=== PATIENT | female | born 1955 | race Caucasian/White ===

== ENCOUNTER → 2018-11-02 | Outpatient (CLI) | payer MEDICARE ==
--- NOTE | 2018-11-03 17:11 | BD ---
EXAMINATION TYPE: Axial Bone Density DATE OF EXAM: 11/02/2018 COMPARISON: NONE CLINICAL HISTORY: Height: 5 FT3 1/2 IN Weight: 177 FRAX RISK QUESTIONS: RISK FACTORS HISTORY OF: Active: YES Postmenopausal woman: AGE 46 MEDICATIONS: Additional Medications: NONE Additional History: EXAM MEASUREMENTS: Bone mineral densitometry was performed using the [employer] System. Bone mineral density as measured about the Lumbar spine is: ----- L1-L4(G/cm2): 1.300 T Score Values are as follows: ----- L2: 0.9 ----- L3: 0.7 ----- L4: 1.8 ----- L1-L4: 1.0 BASELINE Bone mineral density about the R hip (g/cm2): 1.026 Bone mineral density about the L hip (g/cm2): 0.997 T Score values are as follows: -----R Neck: -0.1 -----L Neck: -0.3 -----R Total: 0.5 -----L Total: 0.2 BASELINE IMPRESSION: Normal (Values between +1 and -1 indicate normal bone mass). Consider repeating this study in 5 year s or sooner if there is some new clinical indication. NOTE: T-SCORE=SD OF THE YOUNG ADULT MEAN.
--- NOTE | 2018-11-14 09:31 | MM ---
Reason for exam: screening (asymptomatic). Last mammogram was performed 7 years and 1 month ago. History: Patient is postmenopausal and history of other cancer. Family history of breast cancer in grandmother at age 50. Physical Findings: A clinical breast exam by your physician is recommended on an annual basis and results should be correlated with mammographic findings. MG Screening Mammo w CAD Bilateral CC and MLO view(s) were taken. Prior study comparison: September 19, 2011, mammogram. The breast tissue is extremely dense which could obscure a lesion on mammography. No suspicious abnormality. No significant changes when compared with prior studies. ASSESSMENT: Benign, BI-RAD 2 RECOMMENDATION: Routine screening mammogram of both breasts in 1 year.
== END | disposition home or self-care (01) ==
LOC: RADMAMWWP 08:23
PROVIDERS: ATTEND Family Medicine
DX: Z12.31 Encounter for screening mammogram for malignant neoplasm of breast (principal); Z78.0 Asymptomatic menopausal state
CPT/HCPCS: 77067; 77080

== ENCOUNTER → 2020-06-19 | Outpatient (CLI) | payer MEDICARE ==
[2020-06-19 12:10] LABS: HCT 39.5 % (34.0-46.0); HGB 13.3 gm/dL (11.4-16.0); MCH 32.2 pg (25.0-35.0); MCHC 33.8 g/dL (31.0-37.0); MCV 95.2 fL (80.0-100.0); Mean Platelet Volume 7.7; Platelet Count 247 k/uL (150-450); RBC 4.14 m/uL (3.80-5.40); RDW 12.9 % (11.5-15.5); WBC 5.8 k/uL (3.8-10.6)
[2020-06-19 12:25] LABS: Albumin 4.3 g/dL (3.5-5.0); Calcium 9.2 mg/dL (8.4-10.2); Potassium 4.4 mmol/L (3.5-5.1); Total Bilirubin 0.4 mg/dL (0.2-1.3); Total Protein 7.2 g/dL (6.3-8.2)
[2020-06-19 12:33] LABS: INR 0.9 (<1.2); Partial Thromboplastin Time 22.7 sec (22.0-30.0); Prothrombin Time 9.8 sec (9.0-12.0)
[2020-06-19 14:09] LABS: Appearance,Urine Clear (Clear); Bilirubin,Urine Negative (Negative); Blood,Urine Negative (Negative); Color,Urine Yellow; Glucose,Urine (UA) Negative (Negative); Ketones,Urine Negative (Negative); Leukocyte Esterase,Urine Negative (Negative); Nitrite,Urine Negative (Negative); PH, Urine 6.5 (5.0-8.0); Protein,Urine Negative (Negative); Specific Gravity,Urine 1.025 (1.001-1.035); Urobilinogen,Urine <2.0 mg/dL (<2.0)
== END | disposition home or self-care (01) ==
LOC: LABPAT 10:57
PROVIDERS: ATTEND Orthopaedic Surgery Sports Medicine
DX: Z01.818 Encounter for other preprocedural examination (principal); Z01.812 Encounter for preprocedural laboratory examination
CPT/HCPCS: 80053; 81003; 85027; 85610; 85730; 87070; 93005

== ENCOUNTER 2020-07-04 05:46 | Observation (INO) | payer MEDICARE ==
[2020-06-28 11:56] VITALS: BMI 31.8
[~2020-07-04 05:46] MED LIST: ACETAMINOPHEN TAB 500 MG TAB PO PRN; GABAPENTIN 300 MG CAP PO PRN; LIDOCAINE 1% (10MG/ML) FOR IV START INTRADERMA PRN; MELOXICAM 7.5 MG TAB PO PRN; ONDANSETRON 4 MG/2 ML VIAL IVP ONE; ONDANSETRON 4 MG/2 ML VIAL IVP PRN; ROPIVACAINE 246.25 MG, EPINEPHrine 0.5 MG, KETOROLAC 30 MG, cloNIDine HCL/PF 80 MCG, WA... MISCELLANE PRN; TRANEXAMIC ACID 1,000 MG in SODIUM CHLORIDE 0.9% 100 ML IVPB PRN
[2020-07-04] MEDS: LACTATED RINGERS 1,000 ML IV SCH ×3 (06:15→21:23)
[2020-07-04] MEDS ORDERED: DEXAMETHASONE SOD PHOSPHATE 4 MG/ML 1 ML VIAL IV ONE (06:15)
[2020-07-04] MEDS ORDERED: MIDAZOLAM 2 MG/2 ML VIAL IV ONE (06:37)
[2020-07-04] MEDS ORDERED: PROPOFOL 10 MG/ML 20 ML VIAL IV ONE (06:55)
[2020-07-04] MEDS ORDERED: fentaNYL (PF) 50 MCG/ML 2 ML AMP ONE (06:55)
[2020-07-04] MEDS ORDERED: SODIUM CHLORIDE 0.9% 100 ML BAG ONE (06:55)
[2020-07-04] MEDS ORDERED: PHENYLEPHRINE 10 MG/ML VIAL ONE (06:55)
[2020-07-04] MEDS ORDERED: MIDAZOLAM 2 MG/2 ML VIAL ONE (06:55)
[2020-07-04] MEDS ORDERED: TRANEXAMIC ACID 1,000 MG/10 ML VIAL ONE (06:55)
--- NOTE | 2020-07-04 06:59 | P.ANPRN ---
Procedure Note - Anesthesia - Nerve Block Performed Right Adductor Canal Infusion Time Out Performed: Yes ([id number]) Date of Procedure: 07/04/20 Procedure Start Time: 06:37 Procedure Stop Time: 06:52 Location of Patient: PreOp Indication: Acute Post-Operative Pain, Analgesia, Requested by Surgeon Specifically requested for management of pain by : Radu Morris Sedation Type: Sedate with meaningful contact maintained Preparation: Sterile Prep, Sterile Dressing Position: Supine Catheter: Indwelling Needle Types: Pajunk Needle Gauge: 20 Ultrasound used to visualize needle placement: Yes Ultrasound used to observe medication spread: Yes Injectate: 0.5% Ropivacaine (see comment for volume) (20 mL) Blood Aspirated: No Pain Paresthesia on Injection Noted: No Resistance on Injection: Normal Image Stored and Saved: Yes Events: Uneventful and Well Tolerated
[2020-07-04] MEDS ORDERED: ceFAZolin 3,000 MG in SODIUM CHLORIDE 0.9% IRRIGATIO 3,000 ML IRRIGATION ONE (07:34)
[2020-07-04] MEDS ORDERED: LACTATED RINGERS 1,000 ML IV ONE (08:15)
[2020-07-04] MEDS ORDERED: ROPIVACAINE 0.2%-NS ON-Q PUMP 1,090 MG, EMPTY PAIN BALL 1 EACH MISCELLANE PRN (09:07)
[2020-07-04] MEDS: HYDROmorphone 0.5 MG/0.5 ML SYRINGE IVP PRN ×5 (09:23→23:14)
[2020-07-04] MEDS ORDERED: NALOXONE 0.4 MG/ML 1 ML VIAL IV PRN (09:24)
[2020-07-04] MEDS ORDERED: TEMAZEPAM 15 MG CAP PO PRN (09:24)
[2020-07-04] MEDS ORDERED: HYDROmorphone 0.2 MG/1 ML SYRINGE IVP PRN (09:24)
[2020-07-04] MEDS ORDERED: NA PHOS,M-B/NA PHOS,DI-BA 133 ML ENEMA RECTAL PRN (09:24)
[2020-07-04] MEDS ORDERED: HYDROmorphone 0.5 MG/0.5 ML SYRINGE IVP PRN (09:24)
[2020-07-04] MEDS ORDERED: diazePAM 5 MG TAB PO PRN (09:24)
[2020-07-04] MEDS ORDERED: Acetaminophen-Codeine 300-30mg TAB PO PRN ×2 (09:24)
[2020-07-04] MEDS ORDERED: ACETAMINOPHEN TAB 325 MG TAB PO PRN (09:24)
[2020-07-04] MEDS ORDERED: MAGNESIUM HYDROXIDE 2,400 MG/10 ML CUP PO PRN (09:24)
[2020-07-04] MEDS ORDERED: HYDROcodone/APAP 5-325MG 1 EACH TAB PO PRN (09:24)
[2020-07-04] MEDS ORDERED: bisacodyL 10 MG SUPP RECTAL PRN (09:24)
[2020-07-04] MEDS ORDERED: ONDANSETRON 4 MG/2 ML VIAL IVP PRN (09:24)
--- NOTE | 2020-07-04 10:01 | XR ---
Right knee HISTORY: Total knee arthroplasty 2 views the right knee Patient is status post right knee arthroplasty. There is anatomic alignment. Lucency is present in th e soft tissues. IMPRESSION: Orthopedic follow-up.
--- NOTE | 2020-07-04 10:32 | OP ---
OPERATIVE REPORT DATE OF PROCEDURE: 07/04/2020 SURGEON: Radu Morris MD. MOWING MACHINE OPERATOR: Mina OMON. PREOPERATIVE DIAGNOSIS: Right knee osteoarthrosis. POSTOP DIAGNOSIS: Right knee osteoarthrosis. OPERATION: Right total knee arthroplasty. ANESTHESIA: Spinal sedation. ESTIMATED BLOOD LOSS: 100 mL. TOURNIQUET TIME: 46 minutes at 250 mmHg. COMPLICATIONS: None apparent. DRAINS: None. DISPOSITION: Postanesthesia care unit. INDICATIONS: Carla is a 65-year-old female with longstanding history of right knee pain. Her history and physical examination are consistent with advanced right knee osteoarthrosis. She has been through significant nonoperative management up to this point. Further treatment options were discussed and she has decided to go forward with a right total knee arthroplasty. The risks of procedure were discussed with her in detail. These risks include, but are not limited to risk of infection, nerve damage, bleeding, pain, and a small risk of deep vein thrombosis which could lead to fatal pulmonary embolism. There is also risk of loosening of the implant which could require revision operation. The patient understands these risks. All of her questions were answered to her satisfaction. Appropriate informed consent was obtained. DESCRIPTION OF PROCEDURE: Patient was identified in preoperative holding area. Surgical site was marked by both the patient and myself. She was given 2 grams of Ancef IV for prophylactic purposes. She was then transferred to the operative suite where she was placed supine on the operating room table. Spinal anesthetic was then administered and dosed per the anesthesia department without apparent complication. Examination under anesthesia was then performed. The patient was 2-3 degrees shy of full extension. She had 100 degrees of flexion and the medial collateral ligament, lateral collateral ligament and posterior cruciate ligaments were stable. Tourniquet was then placed high on the right upper thigh well-padded in preparation for surgery. The patient's right lower extremity was then prepped and draped in the usual sterile fashion. Standard surgical pause was undertaken to ensure that we were operating the correct site and that appropriate preoperative antibiotics had been given. All staff in the room were in agreement and we proceeded. The outlines of the patella were marked surgical pen. A planned 12 cm vertical incision centered over the patella was marked with surgical pen. The leg was then exsanguinated with an Esmarch dressing. The knee was then flexed and tourniquet inflated to 250 mmHg. The total tourniquet time for the procedure was 46 minutes. Incision was then made with a 10-blade scalpel. Dissection was carried down sharply with overlying fascia. Great care was taken to minimize the skin flaps. The knee was then exposed using a standard medial parapatellar approach. A small cuff of quadriceps tendon was then left for suturing. She was in a slight bit of valgus preoperatively. A very minimal medial release was then made. This was done just enough to allow for placement of the medial retractor to protect the medial collateral ligament. The medial meniscus was then excised as well. Lateral meniscus was also released anteriorly. The leg was then externally rotated. The patella was everted. The knee was flexed. Retractors were then placed to protect the collateral ligaments. I then proceeded to remove the infrapatellar fat pad. This was excised sharply tangentially with fibers of the patellar tendon. I then proceeded to remove peripheral osteophytes. This was done with a rongeur. I then proceeded with the distal femoral resection. She did have near full extension. A planned 9 mm resection was then done. The femoral canal was then entered in the midline of the femur, approximately 10 mm anterior to the origin of the posterior cruciate ligament. The randa was then advanced down the center of the femur and placed intramedullary. Based on the preoperative radiographs, the angle between the anatomic and mechanical axis of the femur was approximately 4 to 5 degrees. The valgus angle of the distal femoral cutting guide was then set at 4 degrees for the right knee. Distal femoral cutting guide was then advanced over the intramedullary randa. This was seated firmly against the femur. Then as mentioned planned to take 9 mm off the distal femur. The cutting block was then secured onto the femur with pins. The jig was then removed and the distal femoral cut was made through the slot of the block. The pins were then removed. The distal femoral cutting block was removed. The accuracy of the distal femoral cuts was checked with 2 flat bars. I then proceeded with femoral sizing. Posterior referencing sizing guide was held firmly against the resected distal surface of the femur. The posterior condyles were resting on the posterior plane of the guide. The sizing stylus was then placed onto the anterior femur. The size was measured as a size 6. I then assessed for femoral rotation. The plan was for 3 degrees of external rotation. Three degrees of external rotation was placed onto the jig. These holes were then marked. I then confirmed the rotation by 3 separate methods. This was done using epicondylar axis as well as Whitesides line and posterior referencing. It was deemed that the external rotation was proper. I then went forward and placed the femoral cutting block. This was placed over the previously placed pin holes. The Jonathan wing was then placed on to the anterior slots to ensure that we would not notch the anterior femur with the anterior femoral cut. I then proceeded with the anterior femoral cut. This was flush with the anterior cortex of the femur. The posterior cuts were then made followed by the anterior chamfer cut, then the posterior chamfer cut. The cutting block was then removed. Throughout the resection, the collateral ligaments were protected with retractors. I then placed a trial size 6 femur. It was slightly wide mediolateral but the narrow fit nicely and it fit flush with the distal end of the femur. The drill hole was then made. I then proceeded with the tibial cut. I planned for cruciate-retaining knee. The guide was placed and set for varus, valgus and for slope. The height was set for approximate 2 mm resection from the lateral tibial plateau which was the lower side. I was happy with the alignment and the amount of resection. The cutting block was then pinned to the proximal tibia. The alignment randa was removed. The proximal tibia was resected with a reciprocating saw. Again this was done with retractors protecting the collateral ligaments as well as the posterior cruciate ligament. I then proceeded to evaluate the flexion and extension gaps. A 10 mm block was then placed. The flexion and extension gaps were equal. I then proceeded with resection of the posterior osteophytes. She had very minimal posterior osteophytes. This was done using a curved osteotome. This resected the posterior osteophytes and posterior capsule stripping was done off the posterior aspect of the femur. The osteophytes were then removed. I then proceeded with resection of the patella. The thickness of the patella was measured using the caliper. The thickness was 22 mm. The thickness of the anticipated patellar dome was taken into account. Resection was then performed and confirmed to be equal in 4 quadrants using a caliper. Approximately 14 mm of bone remained after the resection. A 29 x 8 standard patellar trial was then placed. The holes were drilled. The trial was then placed. I then proceeded with sizing tibial plate. A size D tibial plate fit very nicely. I then placed the trial femur, the tibial tray and patellar button. A 10 mm trial insert tibial insert was also placed. The components fit very nicely. She had full extension and flexion. The extension and flexion gaps were equal and stable both varus and valgus stress. The patella tracked appropriately. The tibial tray rotation was then marked with a Bovie. This was externally rotated properly. I then proceeded with tibial preparation. First, we drilled the femoral holes and removed femoral component. The tibial tray was then set for proper external rotation as well as mediolateral placement onto the tibia. It was then pinned into place. I then proceeded with punching the keel. I then decided to proceed with cementing of all of our components. The knee was thoroughly irrigated with sterile saline solution via pulse lavage. The lateral geniculate artery was identified and cauterized. All blood was removed from the bone of the tibia, femur and patella with pulse lavage. I then proceeded with cementing. Two packs of antibiotic bone cement were prepared on the back table by the surgical manager. I then proceeded with cementing the tibia first. The cement was impacted in the keel as well as deeply seated in the bone. A second coat of cement was then placed. The tibia was then impacted into place. Excess cement was removed with Farmington's and Jokers. I then proceeded with cementing the femoral component. The femoral component was also cemented using standard technique. Excess cement was removed. A 10 mm trial insert was then placed into the knee. It was brought in full extension with a constant axial load placed until the cement had hardened. The patellar component was then cemented. This held firmly with a compressive device until the cement had dried. When the cement had dried, the knee was taken out of extension. All excess cement was removed from around the prosthesis. I then trialed the knee with a 10 mm insert. The flexion and extension gaps were appropriate. The knee was stable. It came into full extension. I decided to go forward with a 10 mm cross-linked, cruciate-retaining tibial insert. Polyethylene was then placed onto the tibial tray and locked into place. The knee was then reduced. The knee was again further irrigated with sterile saline solution with antibiotic added. The tourniquet was then deflated. The total tourniquet time for the procedure was 46 minutes at 250 mmHg. Final components were Raúl Persona size 6 narrow cruciate-retaining femoral component, size D tibial tray, a 10 mm medial congruent cruciate-retaining polyethylene insert, and a 29 x 8 standard mm patella. I then proceeded with closure. Again, the knee was thoroughly irrigated. The quadriceps tendon and medial retinaculum were reapproximated with #2 Ethibond suture. The extensor mechanism was then closed with a running #2 Quill suture. Subcutaneous tissues were closed with 2-0 Vicryl interrupted suture. The skin was closed with a running 3-0 Quill suture. Dermabond was applied to the incision. Sterile compressive dressing was then applied. All sponge and needle counts were deemed correct prior to closure. The patient tolerated the procedure without apparent complication. She was transferred to the recovery room in stable condition. MMODL / IJN: [id number] /
[2020-07-04] MEDS: HYDROcodone/APAP 10-325MG 1 EACH TAB PO PRN ×3 (12:27→23:14)
[2020-07-04] MEDS: ASPIRIN 81 MG PO SCH (21:23)
[2020-07-04] MEDS: SENNOSIDES-DOCUSATE SODIUM 1 EACH TAB PO SCH (21:23)
--- NOTE | 2020-07-04 22:54 | P.CONS ---
History of Present Illness - Reason for Consult Consult date: 07/04/20 Medical management Requesting physician: Radu Morris - Chief Complaint Right knee surgery - History of Present Illness Consultation: This is a 65-year-old patient, of Dr. Cervantes. Has undergone right total knee arthroplasty. Patient's symptoms have been progressive. Had tried conservative methods including medications. Not helping. Pain was worse with activity and better with rest. Pain localized to the knee. Postprocedure pain is controlled. No nausea vomiting. Did tolerate a light supper. Patient has arthritis in other joints. Insomnia. Urinary incontinence. Review of systems: GEN.: None EYES: None HEENT: None NECK: None RESPIRATORY: None CARDIOVASCULAR: None GASTROINTESTINAL: None GENITOURINARY: Urinary incontinence MUSCULOSKELETAL: Arthritic. Other joints including lower back LYMPHATICS: None HEMATOLOGICAL: None PSYCHIATRY: None NEUROLOGICAL: Insomnia for which she takes Benadryl Past medical history to include: Arthritis, insomnia, urinary incontinence Social history: Does not smoke or drink alcohol. . Physical examination: VITAL SIGNS: 98, 91, 18, 129 with 79, 98% room air GENERAL: BMI 32.5, retraining in bed, comfortable. EYES: Pupils equal. Conjunctiva normal. HEENT: External appearance of nose and ears normal, oral cavity grossly normal. NECK: JVD not raised; masses not palpable. HEART: First and second heart sounds are normal; no edema. LUNGS: Respiratory rate normal; clear to auscultation. ABDOMEN: Soft, nontender, liver spleen not palpable, no masses palpable. PSYCH: Alert and oriented x3; mood and affect normal MUSCULAR skeletal: Evidence of OA especially in the hands, dressing over the right knee. NEUROLOGICAL: Cranial nerves grossly intact; no facial asymmetry, power and sensation grossly intact. LYMPHATICS: No lymph nodes palpable in the axilla and neck INVESTIGATIONS, reviewed in the clinical context: Blood work from 06/19/2020. White count 5.8 hemoglobin 13.3 platelets 247 potassium 4.4 creatinine 0.80 UA negative Assessment: -Right total knee arthroplasty -Primary osteoarthritis -Obesity BMI 32.5 -Insomnia, idiopathic -Chronic urinary stress incontinence Plan: Patient placed on aspirin twice daily for DVT prophylaxis by Dr. Morris. IV fluids. Patient been advised not to take Benadryl for sleeping instead/the patient O2 melatonin. Patient to follow-up with family doctor or discharge. Thank you Dr. Morris Past Medical History Past Medical History: Cancer, Osteoarthritis (OA) Additional Past Medical History / Comment(s): skin ca History of Any Multi-Drug Resistant Organisms: None Reported Past Surgical History: Section, Orthopedic Surgery Additional Past Surgical History / Comment(s): rt knee arthroscopic sx, left middle finger sx Past Anesthesia/Blood Transfusion Reactions: Previous Problems w/ Anesthesia Additional Past Anesthesia/Blood Transfusion Reaction / Comm: slow to wake up Past Psychological History: No Psychological Hx Reported Smoking Status: Never smoker Past Alcohol Use History: Occasional Past Drug Use History: None Reported - Past Family History Mother Family Medical History: Deep Vein Thrombosis (DVT) Father Family Medical History: Cancer Additional Family Medical History / Comment(s): leukemia Medications and Allergies Home Medications Medication Instructions Recorded Confirmed Type No Known Home Medications 06/28/20 07/04/20 History Allergies Allergy/AdvReac Type Severity Reaction Status Date / Time ibuprofen AdvReac Diarrhea Verified 07/04/20 05:59 Physical Exam Vitals: Vital Signs Temp Pulse Pulse Pulse Resp BP BP 07/04/20 19:07 98.0 F 91 18 129/79 07/04/20 11:52 79 117/70 07/04/20 11:37 74 124/84 07/04/20 11:22 71 122/77 07/04/20 11:07 75 137/89 07/04/20 10:52 76 122/79 07/04/20 10:37 91 17 121/73 07/04/20 10:15 71 18 07/04/20 10:01 70 18 135/78 07/04/20 09:46 90 18 128/68 07/04/20 09:31 88 18 127/67 07/04/20 09:16 99 18 123/64 07/04/20 09:01 93 18 123/70 07/04/20 08:52 97.1 F L 77 16 119/63 07/04/20 06:55 77 16 07/04/20 06:07 98.6 F 82 16 131/77 BP Pulse Ox 07/04/20 19:07 98 07/04/20 11:52 96 07/04/20 11:37 96 07/04/20 11:22 97 07/04/20 11:07 98 07/04/20 10:52 97 07/04/20 10:37 91 L 07/04/20 10:15 97 07/04/20 10:01 92 L 07/04/20 09:46 07/04/20 09:31 96 07/04/20 09:16 98 07/04/20 09:01 97 07/04/20 08:52 97 07/04/20 06:55 118/65 99 07/04/20 06:07 99 Intake and Output 07/04/20 07/04/20 07/04/20 06:59 14:59 22:59 Intake Total 100 1651 Output Total 100 Balance 100 1551 Intake: IV 100 1651 Output: Estimated Blood Loss 100 Other: Voiding Method Toilet # Voids 2 Weight 83.1 kg 83.1 kg
[2020-07-05] MEDS: HYDROmorphone 0.5 MG/0.5 ML SYRINGE IVP PRN (02:11)
[2020-07-05] MEDS: HYDROcodone/APAP 10-325MG 1 EACH TAB PO PRN ×4 (04:19→20:47)
[2020-07-05] MEDS: LACTATED RINGERS 1,000 ML IV SCH ×3 (05:45→22:27)
[2020-07-05 06:26] LABS: Basophils % (A) 0 %; Eosinophils # (A) 0.1 k/uL (0-0.7); Eosinophils % (A) 1 %; HCT 32.7 % (34.0-46.0); HGB 11.1 gm/dL (11.4-16.0); Lymphocytes # (A) 1.7 k/uL (1.0-4.8); Lymphocytes % (A) 22 %; MCH 32.1 pg (25.0-35.0); MCHC 34.1 g/dL (31.0-37.0); MCV 94.2 fL (80.0-100.0); Mean Platelet Volume 7.8; Monocytes # (A) 0.5 k/uL (0-1.0); Monocytes % (A) 6 %; Neutrophils # (A) 5.4 k/uL (1.3-7.7); Neutrophils % (A) 69 %; Platelet Count 198 k/uL (150-450); RBC 3.47 m/uL (3.80-5.40); RDW 12.7 % (11.5-15.5); WBC 7.8 k/uL (3.8-10.6)
[2020-07-05] MEDS ORDERED: HYDROcodone/APAP 10-325MG 1 EACH TAB PO PRN (09:10)
[2020-07-05] MEDS: ASPIRIN 81 MG PO SCH ×2 (09:33→21:26)
--- NOTE | 2020-07-05 09:39 | P.PN ---
Subjective Progress Note Date: 07/05/20 Principal diagnosis: Right TKA Patient is seen at bedside this morning. She is postop day #1 from right total knee arthroplasty. She has pain at the surgical site as expected but denies any new complaints. She denies numbness, tingling or calf pain. Review of systems is negative for fever, chills, chest pain, shortness of breath or other Objective - Vital Signs Vital signs: Vital Signs Temp 99 F 07/05/20 06:27 Pulse 90 07/05/20 06:27 Resp 16 07/05/20 06:27 BP 112/64 07/05/20 06:27 Pulse Ox 94 L 07/05/20 06:27 Intake & Output 07/04/20 07/05/20 07/05/20 18:59 06:59 18:59 Intake Total 1651 250 Output Total 100 Balance 1551 250 Weight 83.1 kg Intake: IV 1651 Intake, IV Titration 50 Amount ceFAZolin 2 gm In Sodium 50 Chloride 0.9% 50 ml @ 100 mls/hr IVPB Q8H MARQUITA Rx#: [id number] Oral 200 Output: Estimated Blood Loss 100 Other: Voiding Method Toilet Toilet # Voids 2 4 - Exam Inspection reveals a benign surgical wound. There is no active bleeding or drainage. Neurovascular status is intact throughout the lower extremity with motor and sensation fully intact. Calf is soft and nontender. 2+ dorsalis pedis pulse and less than 2 second cap refill is present. - Constitutional General appearance: Present: no acute distress - Labs CBC & Chem 7: 07/05/20 05:26 Labs: Abnormal Lab Results - Last 24 Hours (Table) 07/05/20 Range/Units 05:26 RBC 3.47 L (3.80-5.40) m/uL Hgb 11.1 L (11.4-16.0) gm/dL Hct 32.7 L (34.0-46.0) % Assessment and Plan (1) Osteoarthritis of right knee Narrative/Plan: She will continue with routine postop orthopedic protocol including pain management, wound care, PT, DVT prophylaxis and medical management. Expect that she will transfer to home tomorrow Current Visit: Yes Status: Acute Code(s): M17.11 - UNILATERAL PRIMARY OSTEOARTHRITIS, RIGHT KNEE SNOMED Code(s): 240679264969611 Time with Patient: Less than 30
[2020-07-05] MEDS ORDERED: MULTIVITAMINS, THERA 1 EACH TAB PO SCH (12:00)
[2020-07-05] MEDS ORDERED: FERROUS SULFATE 325 MG TAB PO SCH ×2 (12:30)
[2020-07-05 15:41] LABS: ALT 14 U/L (4-34); African American GFR (CKD) >90 (>60 ml/min/1.73 sqM); Albumin/Globulin Ratio 1.3; Anion Gap 3 mmol/L; Blood Urea Nitrogen 16 mg/dL (7-17); Calcium 8.2 mg/dL (8.4-10.2); Carbon Dioxide 30 mmol/L (22-30); Chloride 101 mmol/L (98-107); Globulin 2.6 g/dL; Glucose 113 mg/dL (74-99); Non-African American GFR(CKD) 80 (>60 ml/min/1.73 sqM); Sodium 134 mmol/L (137-145); Total Bilirubin 0.6 mg/dL (0.2-1.3)
[2020-07-05 15:49] LABS: Albumin 3.3 g/dL (3.5-5.0); Potassium 4.8 mmol/L (3.5-5.1); Total Protein 5.9 g/dL (6.3-8.2)
[2020-07-05 15:50] LABS: AST 32 U/L (14-36); Alkaline Phosphatase 29 U/L (38-126)
--- NOTE | 2020-07-05 16:24 | PN ---
PROGRESS NOTE DATE OF SERVICE: 07/05/2020 This 65-year-old woman admitted after right total knee arthroplasty has some postoperative anemia, as expected. The patient is also complaining of severe pain. Orthopedic Surgery is following the patient for one more day. The preoperative labs, which were reviewed, showed BUN of 23. UA was unremarkable. CBC showed hemoglobin was 11.1. Past medical history reviewed. REVIEW OF SYSTEMS: CARDIOVASCULAR SYSTEM: No angina, palpitations. RESPIRATORY SYSTEM: As mentioned earlier. GI: As mentioned earlier. : No dysuria or retention. NERVOUS SYSTEM: No numbness, weakness. MUSCULOSKELETAL: As mentioned earlier. CURRENT MEDICATIONS: Reviewed. They include Tylenol, Tylenol No.3, [place], aspirin, iron sulfate, Narcan. Doses are reviewed. PHYSICAL EXAMINATION: Patient alert and oriented x3. Pulse 91, blood pressure 140/79, respiration 18, temperature 98.2, pulse ox 96% on room air. HEENT: Conjunctivae normal. NECK: No jugular venous distention. CARDIOVASCULAR SYSTEM: S1, S2 muffled. RESPIRATORY SYSTEM: Breath sounds diminished at the bases. No rhonchi. No crackles. ABDOMEN: Soft, non-tender. LEGS: Right knee arthroplasty. NERVOUS SYSTEM: No focal deficit. LABS: WBC 7.2, hemoglobin 11.1. ASSESSMENT: 1. Status post right total knee arthroplasty. 2. Anemia present preoperatively, possibly nutritional. 3. Degenerative joint disease. 4. Obesity with body mass index of 32.5. 5. Idiopathic insomnia. 6. Chronic urinary stress incontinence. 7. History of skin cancer. 8. History of degenerative joint disease. 9. FULL CODE. RECOMMENDATIONS AND DISCUSSION: In this 65-year-old woman who presented with multiple complex medical issues, we will monitor the patient closely, continue the current medications. I recommend iron and vitamin supplementation. I would also recommend a CMP for completion's sake and also repeat CBC in the morning. Rest of the medications per Orthopedic Surgery. Pain management per Orthopedic Surgery. Further recommendations to follow. MMODL / IJN: [id number] /
[2020-07-05] MEDS: SENNOSIDES-DOCUSATE SODIUM 1 EACH TAB PO SCH (21:28)
[2020-07-06] MEDS: HYDROcodone/APAP 10-325MG 1 EACH TAB PO PRN ×3 (00:41→09:42)
[2020-07-06 00:46] VITALS: PULSE 98; RESP 18
[2020-07-06 06:42] LABS: Basophils # (A) 0.1 k/uL (0-0.2); Basophils % (A) 1 %; Eosinophils # (A) 0.2 k/uL (0-0.7); Eosinophils % (A) 3 %; HCT 32.9 % (34.0-46.0); HGB 11.3 gm/dL (11.4-16.0); Lymphocytes # (A) 1.6 k/uL (1.0-4.8); Lymphocytes % (A) 22 %; MCH 32.3 pg (25.0-35.0); MCHC 34.3 g/dL (31.0-37.0); MCV 94.2 fL (80.0-100.0); Mean Platelet Volume 7.6; Monocytes # (A) 0.4 k/uL (0-1.0); Monocytes % (A) 6 %; Neutrophils # (A) 4.7 k/uL (1.3-7.7); Neutrophils % (A) 67 %; Platelet Count 177 k/uL (150-450); RDW 12.9 % (11.5-15.5); WBC 7.1 k/uL (3.8-10.6)
[2020-07-06] MEDS: ASPIRIN 81 MG PO SCH (07:28)
[2020-07-06 07:35] VITALS: BP 119/50; TEMP 99
--- NOTE | 2020-07-06 09:15 | P.DS ---
Providers Date of admission: 07/05/20 11:21 Expected date of discharge: 07/06/20 Attending physician: Radu Morris Consults: 07/04/20 09:24 Consult Physician Routine Consulting Provider: Simón Sampson Consult Reason/Comments: post op medical management Do you want consulting provider notified?: Yes Primary care physician: Sylvester Cervantes - Discharge Diagnosis(es) (1) Osteoarthritis of right knee Current Visit: Yes Status: Acute (2) Status post total right knee replacement Current Visit: Yes Status: Acute Hospital Course: This is a 65-year-old female who was last seen with complaint of continued right knee pain. The patient has a known history of degenerative arthritis of the right knee and presents to discuss surgical options. After discussion and consideration the patient elects to proceed with total right knee arthroplasty. The patient is seen preoperatively by Dr. Cervantes and cleared for surgery. The patient is admitted to [facility] for total right knee arthroplasty. The procedures performed without complication or sequelae. Patient is doing well postoperatively. Vital signs are stable at discharge. Labs are stable at discharge. the patient is ambulating well with walker with minimal assistance. The patient is discharged to home on postop day #2 pending medical clearance. Please see orders and refer to the [facility] rec for accurate list of medications. Plan - Discharge Summary Discharge Rx Participant: Yes New Discharge Prescriptions: New Melatonin 1 mg PO HS #30 tablet Aspirin [Adult Low Dose Aspirin EC] 81 mg PO BID #60 tablet.dr Bay [Colace] 100 mg PO BID #60 capsule HYDROcodone/APAP 10-325MG [Brocket 10-325] 1 tab PO Q4HR PRN #42 tab PRN Reason: Pain Discharge Medication List Melatonin 1 mg PO HS #30 tablet 07/04/20 [Rx] Aspirin [Adult Low Dose Aspirin EC] 81 mg PO BID #60 tablet. 07/05/20 [Rx] Docusate [Colace] 100 mg PO BID #60 capsule 07/05/20 [Rx] HYDROcodone/APAP 10-325MG [Brocket 10-325] 1 tab PO Q4HR PRN #42 tab 07/05/20 [Rx] Follow up Appointment(s)/Referral(s): Michael Cervantes MD [Primary Care Provider] - 1 Week [facility], [NON-STAFF] - Radu Morris MD [STAFF PHYSICIAN] - 07/15/20 1:30 pm Activity/Diet/Wound Care/Special Instructions: Keep wound clean and dry Take meds as directed Follow-up with Dr. Morris in office Weight bear as tolerated May shower in 3 days if no bleeding Discharge Disposition: HOME WITH HOME HEALTH SERVICES
[2020-07-06] MEDS ORDERED: THIAMINE 100 MG TAB PO SCH (12:00)
[2020-07-06] MEDS ORDERED: FOLIC ACID 1 MG TAB PO SCH (12:00)
== END 2020-07-06 11:50 | disposition home health service (06) ==
LOC: OR 05:46 → 4SSUR 09:52 → OR 07-05 11:21 → 4SSUR 07-05 11:21
PROVIDERS: ADMIT Orthopaedic Surgery Sports Medicine; ATTEND Orthopaedic Surgery Sports Medicine
DX: M17.0 Bilateral primary osteoarthritis of knee (principal); D64.9 Anemia, unspecified; N39.3 Stress incontinence (female) (male); F51.01 Primary insomnia; M19.042 Primary osteoarthritis, left hand; M19.041 Primary osteoarthritis, right hand; E66.9 Obesity, unspecified; Z68.32 Body mass index [BMI] 32.0-32.9, adult; Z88.6 Allergy status to analgesic agent; Z88.8 Allergy status to other drugs, medicaments and biological substances; Z85.828 Personal history of other malignant neoplasm of skin; Z98.891 History of uterine scar from previous surgery; Z98.890 Other specified postprocedural states; Z97.3 Presence of spectacles and contact lenses; Z83.3 Family history of diabetes mellitus; Z82.49 Family history of ischemic heart disease and other diseases of the circulatory system; Z84.89 Family history of other specified conditions; Z80.6 Family history of leukemia
CPT/HCPCS: 97116 ×2; 97110; 97161; 64448; 76942; 80053; 85025 ×2; 88300; 73560; 27447; G0378 ×2; C1776; C1713; J2250; J0171; J1100; J2370; J0690 ×2; J2405; J3010; J1885; J2795 ×2; J2704; J0735; J1170 ×3

== ENCOUNTER → 2021-02-20 | Outpatient (CLI) | payer MEDICARE ==
--- NOTE | 2021-02-21 11:45 | MM ---
Reason for exam: screening (asymptomatic). Last mammogram was performed 2 years and 4 months ago. History: Patient is postmenopausal and history of other cancer. Family history of breast cancer in grandmother at age 50. Physical Findings: A clinical breast exam by your physician is recommended on an annual basis and results should be correlated with mammographic findings. MG 3D Screening Mammo W/Cad Bilateral CC and MLO view(s) were taken. Prior study comparison: November 02, 2018, bilateral MG screening mammo w CAD. September 19, 2011, mammogram. The breast tissue is heterogeneously dense. This may lower the sensitivity of mammography. Benign appearing bilateral calcifications. There is chronic nodularity in the right breast, stable. No significant changes when compared with prior studies. ASSESSMENT: Benign, BI-RAD 2 RECOMMENDATION: Routine screening mammogram of both breasts in 1 year.
== END | disposition home or self-care (01) ==
LOC: RADMAMWWP 08:33
PROVIDERS: ATTEND Family Medicine
DX: Z12.31 Encounter for screening mammogram for malignant neoplasm of breast (principal); Z78.0 Asymptomatic menopausal state; Z80.3 Family history of malignant neoplasm of breast
CPT/HCPCS: 77063; 77067

== ENCOUNTER 2022-03-22 18:49 | Emergency (ER) | payer MEDICARE ==
[2022-03-22 18:53] VITALS: BP 164/79; PULSE 110; RESP 16; TEMP 98.5
[2022-03-22] MEDS ORDERED: SODIUM CHLORIDE 0.9% 1,000 ML IV STA (18:58)
[2022-03-22] MEDS ORDERED: KETOROLAC 15 MG/ML 1 ML VIAL IVP STA (18:58)
[2022-03-22] MEDS ORDERED: ONDANSETRON 4 MG/2 ML VIAL IVP STA (19:04)
[2022-03-22 19:32] LABS: Basophils # (A) 0.1 k/uL (0-0.2); Basophils % (A) 1 %; Eosinophils # (A) 0.2 k/uL (0-0.7); Eosinophils % (A) 3 %; HCT 37.9 % (34.0-46.0); HGB 13.5 gm/dL (11.4-16.0); Lymphocytes # (A) 1.5 k/uL (1.0-4.8); Lymphocytes % (A) 20 %; MCH 33.7 pg (25.0-35.0); MCHC 35.5 g/dL (31.0-37.0); MCV 95.1 fL (80.0-100.0); Mean Platelet Volume 7.9; Monocytes # (A) 0.3 k/uL (0-1.0); Monocytes % (A) 4 %; Neutrophils # (A) 5.3 k/uL (1.3-7.7); Neutrophils % (A) 70 %; Platelet Count 254 k/uL (150-450); RBC 3.99 m/uL (3.80-5.40); RDW 12.3 % (11.5-15.5); WBC 7.6 k/uL (3.8-10.6)
[2022-03-22 19:42] LABS: Albumin 4.4 g/dL (3.5-5.0); Calcium 8.5 mg/dL (8.4-10.2); Potassium 3.5 mmol/L (3.5-5.1); Total Bilirubin 0.7 mg/dL (0.2-1.3); Total Protein 6.9 g/dL (6.3-8.2)
[2022-03-22 19:43] LABS: Appearance,Urine Clear (Clear); Bilirubin,Urine Negative (Negative); Blood,Urine Trace (Negative); Color,Urine Light Yellow; Glucose,Urine (UA) Negative (Negative); Ketones,Urine Negative (Negative); Leukocyte Esterase,Urine Negative (Negative); Mucus,Urine Rare /hpf; Nitrite,Urine Negative (Negative); Protein,Urine Negative (Negative); RBC,Urine 3 /hpf (0-5); Specific Gravity,Urine 1.016 (1.001-1.035); Squamous Epithelial Cell,Urine <1 /hpf (0-4); Urobilinogen,Urine <2.0 mg/dL (<2.0); WBC,Urine 1 /hpf (0-5)
--- NOTE | 2022-03-22 20:04 | CT ---
EXAMINATION TYPE: CT abdomen pelvis wo con CT DLP: 685 mGycm, Automated exposure control for dose reduction was used. DATE OF EXAM: 03/22/2022 7:51 PM COMPARISON: None CLINICAL INDICATION:Female, 66 years old with history of left flank pain, hx of kidney stone; left fl ank pain, hx of kidney stone TECHNIQUE: Axial CT of the abdomen and pelvis. Sagittal and coronal reformats were created on a [employer] workstation. Contrast used: None Oral contrast used: without Oral Contrast FINDINGS: LOWER CHEST: Subsegmental atelectasis. ABDOMEN LIVER: Diffusely hypoattenuating parenchyma. GALLBLADDER AND BILE DUCTS: Unremarkable. PANCREAS: Unremarkable. SPLEEN: Unremarkable. ADRENAL GLANDS: Unremarkable. KIDNEYS AND URETERS: Mild left hydroureteral nephrosis. Ureteral and perinephric fat stranding. In th e distal left ureter just proximal to the ureterovesicular junction is a 6 mm calculus. Additional no nobstructing calculi are noted within the interpolar and left upper pole regions measuring up to 3 mm in size. Mild right pelviectasis. No evidence for right hydronephrosis. No renal calculi. PELVIS BLADDER: Incompletely distended but grossly unremarkable. REPRODUCTIVE: Unremarkable. ABDOMEN & PELVIS STOMACH AND BOWEL: Small hiatal hernia, duodenum is unremarkable. Scattered diverticula are noted thr oughout the colon. No evidence of bowel obstruction. PERITONEUM: No evidence of pneumoperitoneum or free fluid. VASCULATURE: No evidence of aortic aneurysm. Multiple phleboliths are present within the pelvis. MUSCULOSKELETAL: No acute osseous abnormalities LYMPH NODES: No gross evidence for lymphadenopathy. SOFT TISSUE/ABDOMINAL WALL: Unremarkable IMPRESSION: 1. Distal left 6 mm ureteral calculus with mild upstream hydroureteronephrosis. 2. Nonobstructing left renal calculi. 3. Colonic diverticulosis and other incidental findings as detailed above.
[2022-03-22] MEDS ORDERED: TAMSULOSIN 0.4 MG CAP.ER.24H PO STA (20:12)
--- NOTE | 2022-03-22 20:20 | ED ---
Abdominal Pain HPI - General Chief Complaint: Abdominal Pain Stated Complaint: Kidney stones Time Seen by Provider: 03/22/22 18:57 Source: patient Mode of arrival: ambulatory Limitations: no limitations - History of Present Illness Initial Comments: Patient is a 66 year-old female with a past medical history of kidney stones presents to the emergency department with chief complaint of left side pain. Patient states pain started in the middle of the night and has not gotten better. Describes it has a throbbing pain in the left side which radiates to her left back. Took an aspirin with little relief of pain. Denies fever, chills, other abdominal pain, blood in urine, burning with urination, increased urinary frequency, increased urinary urgency. Patient does not have a urologist currently. States she does have history of right ureteral stent over 30 years ago. MD Complaint: abdominal pain - Related Data Home Medications Medication Instructions Recorded Confirmed Antidepressent 1 dose PO DAILY 02/26/22 Aspirin 325 mg PO DAILY PRN 02/26/22 Cetirizine HCl [Zyrtec] 10 mg PO DAILY PRN 02/26/22 Glucosamine Sulfate 500 mg PO DAILY 02/26/22 Multivitamins, Thera [Multivitamin 1 tab PO DAILY 02/26/22 (formulary)] Vitamin B Complex 1 each PO DAILY 02/26/22 diphenhydrAMINE [Benadryl] 25 mg PO QID PRN 02/26/22 Previous Rx's Medication Instructions Recorded Ketorolac [Toradol] 10 mg PO Q8HR #15 tab 03/22/22 Ondansetron Odt [Zofran Odt] 4 mg PO Q8HR PRN #12 tab 03/22/22 Tamsulosin [Flomax] 0.4 mg PO DAILY #14 cap 03/22/22 Allergies Allergy/AdvReac Type Severity Reaction Status Date / Time ibuprofen AdvReac Diarrhea Verified 03/22/22 18:53 Review of Systems ROS Statement: Those systems with pertinent positive or pertinent negative responses have been documented in the HPI. ROS Other: All systems not noted in ROS Statement are negative. Past Medical History Past Medical History: Cancer, Osteoarthritis (OA) Additional Past Medical History / Comment(s): skin ca, kidney stones, urethral stent History of Any Multi-Drug Resistant Organisms: None Reported Past Surgical History: Section, Joint Replacement, Orthopedic Surgery Additional Past Surgical History / Comment(s): rt knee arthroscopic sx, left middle finger sx,rt knee replaced Past Anesthesia/Blood Transfusion Reactions: Previous Problems w/ Anesthesia Additional Past Anesthesia/Blood Transfusion Reaction / Comment(s): slow to wake up Past Psychological History: Depression Smoking Status: Never smoker Past Alcohol Use History: Daily Past Drug Use History: None Reported - Past Family History Mother Family Medical History: Deep Vein Thrombosis (DVT) Father Family Medical History: Cancer Additional Family Medical History / Comment(s): leukemia General Exam Limitations: no limitations General appearance: alert, in no apparent distress Respiratory exam: Present: normal lung sounds bilaterally. Absent: respiratory distress, wheezes, rales, rhonchi, stridor Cardiovascular Exam: Present: regular rate, normal rhythm, normal heart sounds. Absent: systolic murmur, diastolic murmur, rubs, gallop, clicks GI/Abdominal exam: Present: soft, normal bowel sounds. Absent: distended, tenderness, guarding, rebound, rigid Back exam: Present: normal inspection, CVA tenderness (L). Absent: CVA tenderness (R), paraspinal tenderness, vertebral tenderness Neurological exam: Present: alert, oriented X3, CN II-XII intact Psychiatric exam: Present: normal affect, normal mood Skin exam: Present: warm, dry, intact, normal color. Absent: rash Course Vital Signs 03/22/22 18:51 Temperature 98.5 F Pulse Rate 110 H Respiratory 16 Rate Blood Pressure 164/79 O2 Sat by Pulse 99 Oximetry Medical Decision Making - Medical Decision Making This is a 66-year-old female presenting with left flank pain. Patient well- appearing and in no apparent distress. Afebrile. There is left CVA tenderness. The abdomen is soft and nontender. Laboratory studies obtained. There is no leukocytosis. Kidney function is relatively normal. CT of the abdomen and pelvis without contrast shows a distal left 6 mm ureteral calculus at the ureteral vesicular junction with mild upstream hydroureteronephrosis. Patient given Toradol and Zofran. On reevaluation she states pain and nausea have completely resolved. With pain and nausea controlled, no evidence of infection, and good kidney function, it is reasonable for patient to manage stone at home. This was discussed with patient who states would like to go home. She will be discharged with pain and nausea control. I will also send her home with Flomax and urinary strainer. Patient to follow up with urology. Dr. Abraham is my attending. - Lab Data Result diagrams: 03/22/22 19:22 03/22/22 19:22 Lab Results 03/22/22 03/22/22 03/22/22 Range/Units 19:22 19:22 19:22 WBC 7.6 (3.8-10.6) k/uL RBC 3.99 (3.80-5.40) m/uL Hgb 13.5 (11.4-16.0) gm/dL Hct 37.9 (34.0-46.0) % MCV 95.1 (80.0-100.0) fL MCH 33.7 (25.0-35.0) pg MCHC 35.5 (31.0-37.0) g/dL RDW 12.3 (11.5-15.5) % Plt Count 254 (150-450) k/uL MPV 7.9 Neutrophils % 70 % Lymphocytes % 20 % Monocytes % 4 % Eosinophils % 3 % Basophils % 1 % Neutrophils # 5.3 (1.3-7.7) k/uL Lymphocytes # 1.5 (1.0-4.8) k/uL Monocytes # 0.3 (0-1.0) k/uL Eosinophils # 0.2 (0-0.7) k/uL Basophils # 0.1 (0-0.2) k/uL Sodium 134 L (137-145) mmol/L Potassium 3.5 (3.5-5.1) mmol/L Chloride 100 (98-107) mmol/L Carbon Dioxide 25 (22-30) mmol/L Anion Gap 9 mmol/L BUN 24 H (7-17) mg/dL Creatinine 0.93 (0.52-1.04) mg/dL Est GFR (CKD-EPI)AfAm 74 (>60 ml/min/1.73 sqM) Est GFR (CKD-EPI)NonAf 64 (>60 ml/min/1.73 sqM) Glucose 108 H (74-99) mg/dL Plasma Lactic Acid Anders (0.7-2.0) mmol/L Calcium 8.5 (8.4-10.2) mg/dL Total Bilirubin 0.7 (0.2-1.3) mg/dL AST 25 (14-36) U/L ALT 21 (4-34) U/L Alkaline Phosphatase 65 (38-126) U/L Total Protein 6.9 (6.3-8.2) g/dL Albumin 4.4 (3.5-5.0) g/dL Lipase 320 H (23-300) U/L Urine Color Light Yellow Urine Appearance Clear (Clear) Urine pH 5.0 (5.0-8.0) Ur Specific [place] 1.016 (1.001-1.035) Urine Protein Negative (Negative) Urine Glucose (UA) Negative (Negative) Urine Ketones Negative (Negative) Urine Blood Trace H (Negative) Urine Nitrite Negative (Negative) Urine Bilirubin Negative (Negative) Urine Urobilinogen <2.0 (<2.0) mg/dL Ur Leukocyte Esterase Negative (Negative) Urine RBC 3 (0-5) /hpf Urine WBC 1 (0-5) /hpf Ur Squamous Epith Cells <1 (0-4) /hpf Urine Mucus Rare H (None) /hpf 03/22/22 Range/Units 19:22 WBC (3.8-10.6) k/uL RBC (3.80-5.40) m/uL Hgb (11.4-16.0) gm/dL Hct (34.0-46.0) % MCV (80.0-100.0) fL MCH (25.0-35.0) pg MCHC (31.0-37.0) g/dL RDW (11.5-15.5) % Plt Count (150-450) k/uL MPV Neutrophils % % Lymphocytes % % Monocytes % % Eosinophils % % Basophils % % Neutrophils # (1.3-7.7) k/uL Lymphocytes # (1.0-4.8) k/uL Monocytes # (0-1.0) k/uL Eosinophils # (0-0.7) k/uL Basophils # (0-0.2) k/uL Sodium (137-145) mmol/L Potassium (3.5-5.1) mmol/L Chloride (98-107) mmol/L Carbon Dioxide (22-30) mmol/L Anion Gap mmol/L BUN (7-17) mg/dL Creatinine (0.52-1.04) mg/dL Est GFR (CKD-EPI)AfAm (>60 ml/min/1.73 sqM) Est GFR (CKD-EPI)NonAf (>60 ml/min/1.73 sqM) Glucose (74-99) mg/dL Plasma Lactic Acid Anders 0.8 (0.7-2.0) mmol/L Calcium (8.4-10.2) mg/dL Total Bilirubin (0.2-1.3) mg/dL AST (14-36) U/L ALT (4-34) U/L Alkaline Phosphatase (38-126) U/L Total Protein (6.3-8.2) g/dL Albumin (3.5-5.0) g/dL Lipase (23-300) U/L Urine Color Urine Appearance (Clear) Urine pH (5.0-8.0) Ur Specific [place] (1.001-1.035) Urine Protein (Negative) Urine Glucose (UA) (Negative) Urine Ketones (Negative) Urine Blood (Negative) Urine Nitrite (Negative) Urine Bilirubin (Negative) Urine Urobilinogen (<2.0) mg/dL Ur Leukocyte Esterase (Negative) Urine RBC (0-5) /hpf Urine WBC (0-5) /hpf Ur Squamous Epith Cells (0-4) /hpf Urine Mucus (None) /hpf Disposition Clinical Impression: Kidney stone on left side, Nausea and vomiting, Left flank pain Disposition: HOME SELF-CARE Condition: Good Instructions (If sedation given, give patient instructions): Kidney Stones (ED) Additional Instructions: Take medications as directed. Increase water intake as this will help flush out kidney stone. Follow-up with urologist in 1-2 days. Return to the emergency department experience new, concerning, or worsening symptoms. Prescriptions: Tamsulosin [Flomax] 0.4 mg PO DAILY #14 cap Ketorolac [Toradol] 10 mg PO Q8HR #15 tab Ondansetron Odt [Zofran Odt] 4 mg PO Q8HR PRN #12 tab PRN Reason: Nausea Is patient prescribed a controlled substance at d/c from ED?: No Referrals: Michael Cervantes MD [Primary Care Provider] - 1-2 days Time of Disposition: 20:20
== END 2022-03-22 21:08 | disposition home or self-care (01) ==
LOC: EC 18:49
DX: N20.0 Calculus of kidney (principal); Z88.6 Allergy status to analgesic agent
CPT/HCPCS: 96374; 96361; 99284; 36415; 80053; 83605; 83690; 85025; 81001; 74176; 96375; J2405; J1885

== ENCOUNTER 2022-05-27 08:10 | Day surgery (SDC) | payer MEDICARE ==
[2022-05-25 09:47] VITALS: BMI 31.8
[~2022-05-27 08:10] MED LIST changes: -ACETAMINOPHEN TAB 500 MG TAB PO PRN; -GABAPENTIN 300 MG CAP PO PRN; +LACTATED RINGERS 1,000 ML IV SCH; -MELOXICAM 7.5 MG TAB PO PRN; -ONDANSETRON 4 MG/2 ML VIAL IVP ONE; -ONDANSETRON 4 MG/2 ML VIAL IVP PRN; -ROPIVACAINE 246.25 MG, EPINEPHrine 0.5 MG, KETOROLAC 30 MG, cloNIDine HCL/PF 80 MCG, WA... MISCELLANE PRN; -TRANEXAMIC ACID 1,000 MG in SODIUM CHLORIDE 0.9% 100 ML IVPB PRN
--- NOTE | 2022-05-27 08:22 | P.GSHP ---
History of Present Illness H&P Date: 05/27/22 CHIEF COMPLAINT: Colon screen HISTORY OF PRESENT ILLNESS: The patient is a 67-year-old female who presents for colon screen. Lower endoscopy was offered for further evaluation and management. PAST MEDICAL HISTORY: Please see list. PAST SURGICAL HISTORY: Please see list. MEDICATIONS: Please see list. ALLERGIES: Please see list. SOCIAL HISTORY: No illicit drug use FAMILY HISTORY: No reports of Crohn disease or ulcerative colitis. REVIEW OF ORGAN SYSTEMS: CONSTITUTIONAL: No reports of fevers or chills. PHYSICAL EXAM: VITAL SIGNS: Stable GENERAL: Well-developed pleasant in no acute distress. HEENT: No scleral icterus. Extraocular movements grossly intact. Moist buccal mucosa. NECK: Supple without lymphadenopathy. CHEST: Unlabored respirations. Equal bilateral excursions. CARDIOVASCULAR: Regular rate and rhythm. Distal 2+ pulses. ABDOMEN: Soft, nontender, nondistended. MUSCULOSKELETAL: No clubbing, cyanosis, or edema. ASSESSMENT: 1. Colon screen. PLAN: 1. Recommend proceeding with a lower endoscopy Past Medical History Past Medical History: Cancer, Osteoarthritis (OA) Additional Past Medical History / Comment(s): skin ca, kidney stones History of Any Multi-Drug Resistant Organisms: None Reported Past Surgical History: Section, Joint Replacement, Orthopedic Surgery Additional Past Surgical History / Comment(s): rt knee arthroscopic sx, left middle finger sx,rt knee replaced Past Anesthesia/Blood Transfusion Reactions: Previous Problems w/ Anesthesia, Motion Sickness Additional Past Anesthesia/Blood Transfusion Reaction / Comment(s): slow to wake up Smoking Status: Never smoker - Past Family History Mother Family Medical History: Deep Vein Thrombosis (DVT) Father Family Medical History: Cancer Additional Family Medical History / Comment(s): leukemia Medications and Allergies Home Medications Medication Instructions Recorded Confirmed Type Aspirin 325 mg PO DAILY PRN 02/26/22 05/25/22 History Cetirizine HCl [Zyrtec] 10 mg PO DAILY PRN 02/26/22 05/25/22 History Glucosamine Sulfate 500 mg PO DAILY 02/26/22 05/25/22 History Multivitamins, Thera [Multivitamin 1 tab PO DAILY 02/26/22 05/25/22 History (formulary)] Vitamin B Complex 1 each PO DAILY 02/26/22 05/25/22 History diphenhydrAMINE [Benadryl] 25 mg PO HS PRN 02/26/22 05/25/22 History Dena's Wort 1 tab PO DAILY 05/25/22 05/25/22 History Allergies Allergy/AdvReac Type Severity Reaction Status Date / Time ibuprofen AdvReac Diarrhea Verified 05/25/22 09:47
[2022-05-27 08:42] VITALS: RESP 16; TEMP 97.8
[2022-05-27] MEDS ORDERED: LIDOCAINE 2% INJ 20 MG/ML (2 ML VIAL) ONE (09:06)
[2022-05-27] MEDS ORDERED: PROPOFOL 10 MG/ML 20 ML VIAL IV ONE (09:06)
--- NOTE | 2022-05-27 09:31 | P.PCN ---
Date of Procedure: 05/27/22 Description of Procedure: PREOPERATIVE DIAGNOSIS: Colonoscopy screening. Personal history colon polyps POSTOPERATIVE DIAGNOSIS: Colonoscopy screening. Diverticulosis, scattered. OPERATION: Colonoscopy to the cecum, ileocecal valve and appendiceal orifice. SURGEON: Carly Wiley MD. ANESTHESIA: MAC. INDICATIONS: The patient is a 67-year-old female who presents for colonoscopy screening. Benefits and risks were described and informed consent was obtained. DESCRIPTION OF PROCEDURE: The patient had undergone Sutab prep. The patient had been brought into the operating room and laid in the left lateral decubitus position. After adequate intravenous sedation, the rectum was examined with 2% lidocaine jelly. No external hemorrhoids were encountered. The rectal tone was within normal limits. No lesions were palpated in the rectal vault. An Olympus colonoscope was advanced until the cecum, ileocecal valve and appendiceal orifice were clearly viewed. The prep was fair. Scattered diverticulosis was encountered. No colonic polyps were found. No evidence of focal colitis was found. Retroflexion of the scope demonstrated grade 1 internal hemorrhoids without active bleeding or inflammation. The colon was desufflated. The patient had tolerated the procedure well. Withdrawal time was over 6 minutes. FINDINGS: Aronchick preparation quality scale 3 (1-5) Internal hemorrhoids, grade 1 No external prolapsed hemorrhoids. No arteriovenous malformations. No adenomatous polyps. Highly redundant sigmoid colon requiring abdominal wall pressure No focal colitis. RECOMMENDATIONS: Lower endoscopy in 5 years, 2026 Plan - Discharge Summary New Discharge Prescriptions: Continue Vitamin B Complex 1 each PO DAILY Multivitamins, Thera [Multivitamin (formulary)] 1 tab PO DAILY Aspirin 325 mg PO DAILY PRN PRN Reason: pain/headache Dena's Wort 1 tab PO DAILY Glucosamine Sulfate 500 mg PO DAILY diphenhydrAMINE [Benadryl] 25 mg PO HS PRN PRN Reason: allergies Cetirizine HCl [Zyrtec] 10 mg PO DAILY PRN PRN Reason: allergies Discharge Medication List Aspirin 325 mg PO DAILY PRN 02/26/22 [History] Cetirizine HCl [Zyrtec] 10 mg PO DAILY PRN 02/26/22 [History] Glucosamine Sulfate 500 mg PO DAILY 02/26/22 [History] Multivitamins, Thera [Multivitamin (formulary)] 1 tab PO DAILY 02/26/22 [History] Vitamin B Complex 1 each PO DAILY 02/26/22 [History] diphenhydrAMINE [Benadryl] 25 mg PO HS PRN 02/26/22 [History] Dena's Wort 1 tab PO DAILY 05/25/22 [History] Follow up Appointment(s)/Referral(s): Carly Wiley MD [STAFF PHYSICIAN] - As Needed Patient Instructions/Handouts: Diverticulosis Diet (GEN), Diverticulosis (DC) Activity/Diet/Wound Care/Special Instructions: Repeat colonoscopy in 5 years, 2026 Discharge Disposition: HOME SELF-CARE
[2022-05-27 09:36] VITALS: PULSE 80
[2022-05-27 09:52] VITALS: BP 114/77
== END 2022-05-27 10:04 | disposition home or self-care (01) ==
LOC: ORWHC2ENDO 08:10
PROVIDERS: ATTEND Surgery Plastic and Reconstructive Surgery
DX: Z12.11 Encounter for screening for malignant neoplasm of colon (principal); K57.30 Diverticulosis of large intestine without perforation or abscess without bleeding; M19.90 Unspecified osteoarthritis, unspecified site; Z87.19 Personal history of other diseases of the digestive system; Z87.442 Personal history of urinary calculi; Z88.6 Allergy status to analgesic agent
CPT/HCPCS: J2704; J2001; G0121

== ENCOUNTER → 2023-02-25 | Outpatient (CLI) | payer MEDICARE ==
--- NOTE | 2023-02-25 10:56 | BD ---
EXAMINATION TYPE: Axial Bone Density DATE OF EXAM: 02/25/2023 CLINICAL HISTORY: 67 years old Female. ICD-10 CODE: M89.9 disorder of bone Height: 63.2 in Weight: 185 lbs FRAX RISK QUESTIONS: History of Fracture in Adulthood: lt tib/fib fx age 65 RISK FACTORS HISTORY OF: Active: yes Postmenopausal woman: age 43 MEDICATIONS: Additional Medications: multi vitamin, allergy pill, vit b Additional History: skin cancer with radiation EXAM MEASUREMENTS: Bone mineral densitometry was performed using the [employer] System. Bone mineral density as measured about the Lumbar spine is: ----- L1-L4(G/cm2): 1.389 T Score Values are as follows: ----- L1: 0.4 ----- L2: 1.2 ----- L3: 1.8 ----- L4: 3.0 ----- L1-L4: 1.7 Z Score Values are as follows: ----- L1: 1.5 ----- L2: 2.2 ----- L3: 2.8 ----- L4: 4.0 ----- L1-L4: 2.8 Bone mineral density has: Increased 6.8% since study of: 11/02/2018 Bone mineral density about the R hip (g/cm2): 1.057 Bone mineral density about the L hip (g/cm2): 1.003 T Score values are as follows: -----R Neck: -0.2 -----L Neck: -0.5 -----R Total: 0.4 -----L Total: 0.0 Z Score values are as follows: -----R Neck: 1.1 -----L Neck: 0.8 -----R Total: 1.4 -----L Total: 1.0 Bone mineral density has: Decreased -2.1% since study of: 11/02/2018 FRAX%s: The graph provided illustrates a 11.9% chance for a major osteoporotic fx and a 0.8% chance f or the hips probability for fx in 10 years time. IMPRESSION: Normal (Values between +1 and -1 indicate normal bone mass). Consider repeating this study in 5 year s or sooner if there is some new clinical indication. NOTE: T-SCORE=SD OF THE YOUNG ADULT MEAN.
--- NOTE | 2023-02-26 09:03 | MM ---
Reason for Exam: Screening (asymptomatic). Last mammogram was performed 2 year(s) and 0 month(s) ago. Patient History: Menarche at age 8. First Full-Term at age 19. Postmenopausal. Other cancer. Maternal grandmother had breast cancer, age 50. Risk Values: Rosmery 5 year model risk: 1.7%. NCI Lifetime model risk: 5.2%. Prior Study Comparison: 09/19/2011 Screening Mammogram, Unknown. 11/02/2018 Bilateral Screening Mammogram, [facility]. 02/20/2021 Bilateral Screening Mammogram, [facility]. Tissue Density: The breast tissue is extremely dense which could obscure a lesion on mammography. Findings: Analyzed By CAD. There is no suspicious group of microcalcifications or new suspicious mass in either breast. Overall Assessment: Benign, BI-RAD 2 Management: Screening Mammogram of both breasts in 1 year. . Patient should continue monthly self-breast exams. A clinical breast exam by your physician is recommended on an annual basis. This exam should not preclude additional follow-up of suspicious palpable abnormalities. Note on Rosmery scores and lifetime risk: 1. A Rosmery score greater than 3% is considered moderate risk. If this is the case, consider specialist referral to assess eligibility for a risk reducing agent. 2. If overall lifetime risk for the development of breast cancer is 20% or higher, the patient may qualify for future screening with alternating mammogram and breast MRI. Electronically signed and approved by: Balaji Belcher M.D. Radiologis
== END | disposition home or self-care (01) ==
LOC: RADMAMWWP 08:07
PROVIDERS: ATTEND Family Medicine
DX: Z12.31 Encounter for screening mammogram for malignant neoplasm of breast (principal); M85.852 Other specified disorders of bone density and structure, left thigh; Z78.0 Asymptomatic menopausal state; Z80.3 Family history of malignant neoplasm of breast
CPT/HCPCS: 77063; 77067; 77080